=== PATIENT | female | born 1950 | race African-American/Black ===

== ENCOUNTER → 2017-10-24 | Outpatient (CLI) | payer BC ==
[~2017-10-24] MED LIST: ATORVASTATIN CA40 MG PO; GLIPIZIDE XL5 MG PO; LEVOTHYROXINE100 MCG PO; LISINOPRIL40 MG PO; PAROXETINE HCL10 MG PO
== END | disposition home or self-care (01) ==
LOC: NUC 10-17 11:30
DX: E04.1 Nontoxic single thyroid nodule (principal)
CPT/HCPCS: 76536; 78072; A9500